=== PATIENT | male | born 1950 | race Caucasian/White ===

== ENCOUNTER 2017-04-04 21:26 | Emergency (ER) | payer MEDICARE, OTHER ==
[~2017-04-04] VITALS: Ht 170.2 cm; Wt 75.5 kg
[2017-04-04 21:32] VITALS: Ht 170.2 cm; Wt 75.5 kg
[2017-04-04] MEDS ORDERED: LIDOCAINE 1% (MDV) 20 ML INJ SC ONE (22:30)
[2017-04-04] MEDS ORDERED: HYDR-906 PO (23:03)
[2017-04-04] MEDS ORDERED: DIPHTH/TET/ACEL PERTUSS (ADULT) 0.5 ML VIAL IM* ONE (23:30)
--- NOTE | 2017-04-05 02:46 | ERA ---
ER Documentation Chief Complaint Date/Time DATE: 04/05/17 TIME: 02:42 Chief Complaint Pt reports fall while cleaning a window. Lac to L hand HPI Patient presents 6 hours status post hand laceration on gutter. Patient has fall on outstretched hand. Patient denies injury to any other areas of the body except for lower left knee which he states has no pain. Patient has been keeping a bandage over it since the time of the accident. Patient has not taken any other medications to relieve the symptoms. Patient does have diabetes. Patient has no other medical history and no other complaints at this time. Denies loss of motion or neuro changes. ROS All systems reviewed and are negative except as per history of present illness. Medications Home Meds Active Scripts Hydrocodone/Acetaminophen ([place] 5-325 Tablet) 1 Each Tablet, 1 TAB PO Q6H Y for PAIN, #7 TAB Prov:ARPIT OJEDA PA-C 04/04/17 Allergies Allergies: Coded Allergies: No Known Allergy (Unverified , 03/23/15) PMhx/Soc History of Surgery: No Anesthesia Reaction: No Hx Neurological Disorder: Yes (HX OF STROKE) Hx Respiratory Disorders: No Hx Cardiac Disorders: No Hx Psychiatric Problems: No Hx Miscellaneous Medical Probl: Yes (DM ) Hx Alcohol Use: No Hx Substance Use: No Hx Tobacco Use: No Smoking Status: Former smoker Physical Exam Vitals Vital Signs Date Time Temp Pulse Resp B/P Pulse Ox O2 Delivery O2 Flow Rate FiO2 04/04/17 21:32 99.1 108 20 187/87 99 Physical Exam Const: Well-appearing man. Head: Atraumatic Eyes: Normal Conjunctiva ENT: Normal External Ears, Nose. Abnormal dentition. Neck: Full range of motion..~ No meningismus. Resp: Clear to auscultation bilaterally Cardio: Regular rate and rhythm, no murmurs Abd: Soft, non tender, non distended. Normal bowel sounds Skin: No petechiae or rashes Back: No midline or flank tenderness Ext: No cyanosis, or edema. 3 cm laceration present shave on the hyperthenar eminence of the left hand. Clean-cut. Neur: Awake and alert Psych: Normal Mood and Affect Results 24 hrs Current Medications Medications (Trade) Dose Ordered Sig/Sachin Route PRN Reason Start Time Stop Time Status Last Admin Dose Admin Lidocaine (Xylocaine 1% (Mdv) 20 ml) 20 ml ONCE ONCE SC 04/04/17 22:30 04/04/17 22:31 DC Diphtheria/ Tetanus/Acell Pertussis (Adacel) 0.5 ml ONCE ONCE IM* 04/04/17 23:30 04/04/17 23:31 DC 04/04/17 23:16 Procedures/MDM 67-year-old male with history of diabetes been worked up and evaluated for left hand laceration to the hyperthenar eminence. Patient's laceration was a crescent-shaped. Wound was cleaned with more than 500 cc of saline. Wound was cleaned after irrigation and prepped for sutures. 4-0 Ethilon sutures were used. 2 simple sutures at each end and a vertical mattress suture in the middle due to the shape of laceration this was the most effective suture pattern. After sutures were placed patient remains neurovascularly intact. There is good eversion with the sutures. There is good approximation. Patient was given a Tdap due to unknown vaccination status. At this time I do not believe that the wound is antibiotics as there is a clean cut wound and was not deep. I enlisted the help of my supervising physician who agrees with assessment and plan. Patient is stable and his current condition is appropriate for discharge. I have spoke with the patient is agreed to the 2 day follow-up and has a knowledge the plan of management as well. Departure Diagnosis: Primary Impression: Laceration Condition: Stable Patient Instructions: Laceration, Extrem (Suture, Staple, Or Tape) Additional Instructions: Follow-up in 2 days for wound check. If there is any complications or reactions to the medications return to the emergency department immediately. If you have any questions regarding the medications as before relieve rest pharmacist. ARPIT OJEDA PA-C April 05, 2017 02:46
== END 2017-04-04 23:35 | disposition home or self-care (01) ==
LOC: FTE 21:26
DX: S61.412A Laceration without foreign body of left hand, initial encounter (principal); E11.9 Type 2 diabetes mellitus without complications; W18.39XA Other fall on same level, initial encounter; Y92.9 Unspecified place or not applicable; Z23 Encounter for immunization; Z87.891 Personal history of nicotine dependence
CPT/HCPCS: 90471; 90715

== ENCOUNTER 2017-04-07 21:31 | Emergency (ER) | payer MEDICARE, OTHER ==
[~2017-04-07] VITALS: Ht 170.2 cm; Wt 72.5 kg
[~2017-04-07 21:31] MED LIST: HYDR-906 PO
[2017-04-07 21:34] VITALS: Ht 170.2 cm; Wt 72.5 kg
--- NOTE | 2017-04-07 23:00 | ERD ---
ER Documentation Chief Complaint Date/Time DATE: 04/07/17 TIME: 22:59 Chief Complaint WOUND CHECK AND DRESSING CHANGE HPI Patient is a 67-year-old male who is here for a 2 day wound check for a laceration on his left hand. He is requesting that we change the dressing. He has no complaints. No fever. No pain. No leading or drainage from the wound. No new injuries. ROS All systems reviewed and are negative except as per history of present illness. Medications Home Meds Active Scripts Hydrocodone/Acetaminophen ([place] 5-325 Tablet) 1 Each Tablet, 1 TAB PO Q6H Y for PAIN, #7 TAB Prov:ARPIT OJEDA PA-C 04/04/17 Allergies Allergies: Coded Allergies: No Known Allergy (Unverified , 04/07/17) PMhx/Soc History of Surgery: No Anesthesia Reaction: No Hx Neurological Disorder: Yes (HX OF STROKE) Hx Respiratory Disorders: No Hx Cardiac Disorders: No Hx Psychiatric Problems: No Hx Miscellaneous Medical Probl: Yes (DM ) Hx Alcohol Use: No Hx Substance Use: No Hx Tobacco Use: No Smoking Status: Never smoker FmHx Family History: No diabetes Physical Exam Vitals Vital Signs Date Time Temp Pulse Resp B/P Pulse Ox O2 Delivery O2 Flow Rate FiO2 04/07/17 21:34 97.8 102 18 156/70 98 Physical Exam General: well developed, well nourished, alert, nontoxic, no distress Head: normocephalic, atraumatic Respiratory: Clear to auscaultation bilaterally, speaks in full sentences, no use of accesory muscles or labored breathing, no rales, ronchi, or wheezing Cardiovascular: RRR, No murmurs Extremities: moving all extremities normally, normal gait, no edema Skin: Healing laceration on the left hand palmar surface at the base of the fifth metacarpals pulled Procedures/MDM Patient is here for wound check. Wound is healing appropriately without evidence of infection. Dressing was retrained recommended 2 day wound check again. Recommended this patient follow up with her primary care doctor within 48 hours or return to the emergency room for any worsening of symptoms. However this time I do believe there is suitable for outpatient management. I answered all their questions and they agreed with the plan and were discharged home. Departure Diagnosis: Primary Impression: Encounter for wound re-check Condition: Stable Patient Instructions: Wound Care Additional Instructions: Call your primary care doctor TOMORROW for an appointment during the next 1-2 days.See the doctor sooner or return here if your condition worsens before your appointment time. ASHANTI YATES PA-C April 07, 2017 23:00
== END 2017-04-07 23:04 | disposition home or self-care (01) ==
LOC: FTE 21:31
DX: Z48.01 Encounter for change or removal of surgical wound dressing (principal); E11.9 Type 2 diabetes mellitus without complications
CPT/HCPCS: 99281

== ENCOUNTER 2019-01-30 20:36 | Emergency (ER) | payer MEDICARE, OTHER ==
[~2019-01-30] VITALS: Ht 170.2 cm; Wt 73.0 kg
[~2019-01-30 20:36] MED LIST changes: +CEPH-443 PO; +HYDR-4011 PO; -HYDR-906 PO
[2019-01-30 20:55] VITALS: Ht 170.2 cm; Wt 73.0 kg
[2019-01-30] MEDS ORDERED: AZITHROMYCIN 500MG/NS (PMX) 250 ML IV STA (21:11)
[2019-01-30] MEDS ORDERED: CEFTRIAXONE 1 GM/50 ML (PMX) 50 ML IVPB STA (21:11)
[2019-01-30] MEDS ORDERED: SODIUM CHLORIDE 0.9% 1L BAG IV* STA (21:11)
[2019-01-30 22:45] VITALS: BP 124/68; PULSE 115; RESP 30
[2019-01-30] MEDS ORDERED: ASPIRIN 81 MG TAB PO ONE (23:00)
[2019-01-30] MEDS ORDERED: HEPARIN 25000 UNITS/250 ML 250 ML IV SCH (23:00)
[2019-01-30] MEDS ORDERED: HEPARIN 1000 UNITS/ML 10 ML INJ IV ONE (23:00)
[2019-01-30] MEDS ORDERED: HEPARIN 1000 UNITS/ML 10 ML INJ IV PRN (23:00)
--- NOTE | 2019-01-30 23:50 | ERD ---
ER Documentation Chief Complaint Chief Complaint SEVER COUGH X 4 DYS, +GENERLAIZED CP, EKG COMPLETED TRAIGE HPI 68-year-old male is presenting with a cough for the past 4 days with no associated phlegm production, shortness of breath, or chest pain. He has not had any nausea, vomiting, diarrhea. He has felt feverish but has not checked his temperature. He is here because he wants something for his cough. ROS All systems reviewed and are negative except as per history of present illness. Medications Home Meds Active Scripts Cephalexin* (Keflex*) 500 Mg Capsule, 500 MG PO QID for 7 Days, CAP Prov:GIOVANNA BERNAL. WORKFORCE DEVELOPMENT PROGRAM DIRECTOR 04/16/17 Hydrocodone/Acetaminophen ([place] 5-325 Tablet) 1 Each Tablet, 1 TAB PO Q6H PRN for PAIN, #7 TAB Prov:ARPIT OJEDA PA-C 04/04/17 Allergies Allergies: Coded Allergies: No Known Allergy (Unverified , 04/16/17) PMhx/Soc History of Surgery: No Anesthesia Reaction: No Hx Neurological Disorder: Yes (HX OF STROKE) Hx Respiratory Disorders: No Hx Cardiac Disorders: No Hx Psychiatric Problems: No Hx Miscellaneous Medical Probl: Yes (DM, hypertension) Hx Alcohol Use: No Hx Substance Use: No Hx Tobacco Use: No Smoking Status: Never smoker FmHx Family History: No diabetes Physical Exam Vitals Vital Signs Date Temp Pulse Resp B/P (MAP) Pulse Ox O2 O2 Flow FiO2 Time Delivery Rate 01/30/19 115 30 124/68 100 Nasal 2.0 22:45 (86) Cannula 01/30/19 100.1 128 20 125/63 97 20:55 (83) Physical Exam Const: No acute distress, frequent coughing Head: Atraumatic Eyes: Normal Conjunctiva ENT: Normal External Ears, Nose and Mouth. Neck: Full range of motion. No meningismus. No JVD Resp: Clear to auscultation bilaterally, somewhat diminished bilaterally. No wheezing, rales, rhonchi Cardio: Regular rate and rhythm, no murmurs. 2+ distal pulses in all 4 extremities Abd: Soft, non tender, non distended. Normal bowel sounds Skin: No petechiae or rashes Back: No midline or flank tenderness Ext: No cyanosis, or edema Neur: Awake and alert, oriented x3, no facial asymmetry, normal speech, moving all extremities Psych: Normal Mood and Affect Result Diagram: 01/30/19212501/30/192125 Results 24 hrs Laboratory Tests Test 01/30/19 21:25 01/30/19 21:26 Prothrombin Time 13.7 Sec Prothrombin Time Ratio 1.1 INR International Normalized Ratio 1.04 Activated Partial Thromboplast Time 29.6 Sec White Blood Count 7.7 10^3/ul Red Blood Count 3.40 10^6/ul Hemoglobin 10.9 g/dl Hematocrit 32.7 % Mean Corpuscular Volume 96.2 fl Mean Corpuscular Hemoglobin 32.1 pg Mean Corpuscular Hemoglobin Concent 33.3 g/dl Red Cell Distribution Width 13.1 % Platelet Count 203 10^3/UL Mean Platelet Volume 11.0 fl Immature Granulocytes % 0.600 % Neutrophils % 64.5 % Lymphocytes % 17.6 % Monocytes % 14.0 % Eosinophils % 2.8 % Basophils % 0.5 % Nucleated Red Blood Cells % 0.0 /100WBC Immature Granulocytes # 0.050 10^3/ul Neutrophils # 5.0 10^3/ul Lymphocytes # 1.4 10^3/ul Monocytes # 1.1 10^3/ul Eosinophils # 0.2 10^3/ul Basophils # 0.0 10^3/ul Nucleated Red Blood Cells # 0.0 10^3/ul Sodium Level 134 mmol/L Potassium Level 4.4 mmol/L Chloride Level 104 mmol/L Carbon Dioxide Level 20 mmol/L Anion Gap 10 Blood Urea Nitrogen 41 mg/dl Creatinine 1.76 mg/dl Est Glomerular Filtrat Rate mL/min 39 mL/min Glucose Level 132 mg/dl Lactic Acid Level 1.2 mmol/L Calcium Level 8.6 mg/dl Total Bilirubin 0.3 mg/dl Direct Bilirubin 0.00 mg/dl Indirect Bilirubin 0.3 mg/dl Aspartate Amino Transf (AST/SGOT) 35 IU/L Alanine Aminotransferase (ALT/SGPT) 23 IU/L Alkaline Phosphatase 110 IU/L Troponin I 1.570 ng/ml Total Protein 7.0 g/dl Albumin 3.7 g/dl Globulin 3.30 g/dl Albumin/Globulin Ratio 1.12 Current Medications Medications Dose Sig/Sachin Start Time Status Last (Trade) Ordered Route PRN Stop Time Admin Dose Reason Admin Sodium 2,190 ml BOLUS OVER 2 01/30/19 DC 01/30/19 Chloride HOURS STAT 21:11 21:56 (NS) IV* 01/30/19 21:13 Ceftriaxone 50 ml @ ONCE STAT 01/30/19 DC 01/30/19 Sodium 100 mls/hr IVPB 21:11 21:56 01/30/19 21:40 Azithromycin 250 ml @ ONCE STAT 01/30/19 DC 250 mls/hr IV 21:11 01/30/19 22:10 Aspirin 162 mg ONCE ONCE 01/30/19 DC (Aspirin) PO 23:00 01/30/19 23:01 DC ONCE ONCE 01/30/19 DC Miscellaneous previous XX 23:00 hepa... 01/30/19 23:01 Information (* Miscellaneous Pharmacy Order) Heparin 4,000 unit ONCE ONCE 01/30/19 DC Sodium IV 23:00 (Porcine) 01/30/19 23:01 (Heparin (1000 Units/ml)) Heparin 4,000 unit PER PROTOCOL 01/30/19 Sodium PRN IV 23:00 (Porcine) aPTT<47 (Heparin (1000 Units/ml)) Heparin 250 ml @ 0 PER 01/30/19 Sodium mls/hr PROTOCOL IV 23:00 (Porcine) Procedures/MDM EMERGENT LABS AND DIAGNOSTIC STUDIES: Lab Results above were reviewed and interpreted by me. CBC: mild anemia, no evidence of infection CMP: Elevated BUN and creatinine, consistent with renal insufficiency of unknown chronicity. No evidence of electrolyte abnormality, hypoglycemia, liver failure, or biliary obstruction Troponin is elevated, concerning for myocardial ischemia Lactate within normal limits without evidence of sepsis or tissue hypoperfusion 12-lead EKG #1 was interpreted by Ewa Schroeder MD: Sinus tachycardia at 122 bpm Normal axis Normal intervals ST depressions in the lateral leads No acute ST or T wave changes suggestive of acute ischemia or STEMI. EKG #2: Rate/Rhythm: Sinus tachycardia at 111 bpm QRS, ST, T-waves: Severe ST depressions in the anterolateral and inferior leads with ST elevation in aVR, Impression: concerning for acute ischemia. Radiology Results as interpreted by Radiology below were reviewed by Jeff Schroeder MD: Chest x-ray shows no acute abnormalities Initial Nursing notes reviewed. Previous Medical Records requested via the Electronic Health Record. EMERGENCY DEPARTMENT COURSE / MEDICAL DECISION MAKING: Patient is presenting with borderline fever, tachycardia, and complaints of c ough for the past 4 days. Sepsis workup was initiated on him. Lactate was within normal limits without evidence of severe sepsis or septic shock. His labs were notable for acute renal insufficiency of unknown chronicity as I have no prior labs to compare to. An EKG was done and showed evidence of possible ischemia. Troponin was sent and was elevated. After the troponin resulted, I reevaluated the patient and he continued to deny any chest pain or shortness of breath. His only complaint was again cough. Repeat EKG was done and showed evidence of worsening ischemia and dynamic changes. Since the patient was not symptomatic, I discussed this case with the business applications manager on-call, Dr. Mcmullen. He reviewed the EKGs and agrees that the patient has acute coronary syndrome and will need admission for heparin drip and cardiology evaluation. However he does not think that this is a STEMI and does not feel that the patient needs to go to the [facility] emergently. Heparin drip and aspirin were ordered. I discussed the patient's results and findings with him and his at bedside. However the patient does not believe that he has any problems with his heart. He states that his auto service representative has told him that his heart is fine. Since there seemed to be somewhat of a language barrier, I recommended calling a adjunct instructor of women's studies to help clarify things. However the patient adamantly refused help of a adjunct instructor of women's studies. He states that he understands everything. He does not believe that he has a problem with his heart although I discussed with him his EKG changes and elevated troponin. I had the charge nurse and the bedside nurse explain things to him as well, however the patient continued to refuse help of a adjunct instructor of women's studies and continue to refuse any treatment for ACS. The patient has made the decision to leave this Emergency Department and any ongoing care against the advice of the emergency physician. The patient has been informed of and verbalized understanding of the inherent risks of this decision, including and disability. The patient explained to me the reason for wanting to sign out against medical advice which was he believes he does not have heart problems. The patient has the capacity to make this decision and accepts the responsibility of leaving at this time. The patient and all necessary parties have been advised that the patient may return at any time for further evaluation or treatment. The patient's condition at time of discharge is critical. Departure Diagnosis: Primary Impression: Cough Additional Impression: Acute coronary syndrome Condition: Critical Patient Instructions: Heart Attack, [place] Form- 1 JOHN SCHROEDER MD Jan 30, 2019 23:50
== END 2019-01-30 23:30 | disposition left against medical advice (07) ==
LOC: E/R 20:36
DX: I24.9 Acute ischemic heart disease, unspecified (principal); I10 Essential (primary) hypertension; E11.9 Type 2 diabetes mellitus without complications
CPT/HCPCS: 36415; 71045; 80053; 83605; 84484; 85025; 85610; 85730; 87040; 93005; 96374; 99285; J0456; J0696; J7030